=== PATIENT | female | born 1995 | race Caucasian/White ===

== ENCOUNTER 2024-02-16 20:33 | Emergency (ER) | payer BC, SELFPAY ==
[2024-02-16 21:09] VITALS: TEMP 97.8
--- NOTE | 2024-02-16 21:19 | ERPHSYRPT ---
- History of Present Illness Time Seen by Provider: 02/16/24 20:46 Historian: patient Exam Limitations: no limitations Patient Subjective Stated Complaint: pt states she has been having diarrhea and vomiting since yesterday Triage Nursing Assessment: pt alert and oriented, answers questions approp. pt ambulates into room with steady gait noted. respirations nonlabored. skin warm and dry. abd soft and nontender with hypo bowel sounds. Physician History: 28-year-old healthy female presented in the ER with complaint of abdominal cramping with nausea vomiting and diarrhea. Patient reports 2 days ago it started as a loose stool which got worse since yesterday morning and since last night having multiple episodes of nonprojectile, nonbilious vomiting without hematemesis. Denies any hematochezia. Reports intermittent cramping lasting for 30 to 40 minutes each, partial relief with lying on the stomach and gets wo rse with lying on the back and relief after vomiting or diarrhea. Other family member had some nausea vomiting and diarrhea symptoms as well few days ago. Allergies/Adverse Reactions: Penicillins Allergy (Unknown, Verified 02/16/24 21:09) Hx Tetanus, Diphtheria Vaccination/Date Given: Yes Hx Influenza Vaccination/Date Given: Yes Hx Pneumococcal Vaccination/Date Given: No Immunizations Up to Date: Yes Travel Risk - International Travel Have you traveled outside of the country in past 3 weeks: No - Emerging Infectious Disease Are you exhibiting symptoms associated with any current EIDs: No - Review of Systems Constitutional: Fatigue, Weakness Eyes: No Symptoms Ears, Nose, & Throat: No Symptoms Respiratory: No Symptoms Cardiac: No Symptoms Abdominal/Gastrointestinal: Abdominal Pain, Nausea, Vomiting, Diarrhea Genitourinary Symptoms: No Symptoms Musculoskeletal: No Symptoms Skin: No Symptoms Neurological: No Symptoms Endocrine: No Symptoms Hematologic/Lymphatic: No Symptoms - Past Medical History Pertinent Past Medical History: Yes Other Medical History: possible stomach ulcer, pac's - Past Surgical History Past Surgical History: No - Female History Hx Last Menstrual Period: nexplanon Hx Now: No - Social History Smoking Status: Never smoker Exposure to second hand smoke: No Drug Use: none - Social Determinants of Health Do you worry about a steady place to live?: No Do you have any problems with any of the following?: No known problems In the past 12 months,have you had to go without utilities?: No Transportation Issues: No Has anyone in your support network made you feel unsafe?: No Have you or anyone in your house had to go without enough: No - Nursing Vital Signs Nursing Vital Signs: Initial Vital Signs Temperature 97.8 F 02/16/24 20:46 Pulse Rate 118 H 02/16/24 20:46 Respiratory Rate 18 02/16/24 20:46 Blood Pressure 140/82 02/16/24 20:46 O2 Sat by Pulse Oximetry 97 02/16/24 20:46 Pain Scale Pain Intensity 5 - Physical Exam General Appearance: no apparent distress, alert Eye Exam: PERRL/EOMI Ears, Nose, Throat Exam: normal ENT inspection, TMs normal, pharynx normal, moist mucous membranes Neck Exam: normal inspection, non-tender, supple, full range of motion Respiratory Exam: normal breath sounds, lungs clear Cardiovascular Exam: normal heart sounds, tachycardia Gastrointestinal/Abdomen Exam: soft, normal bowel sounds, tenderness (Generalized), No guarding Back Exam: normal inspection, normal range of motion Extremity Exam: normal inspection, normal range of motion Neurologic Exam: alert, oriented x 3, cooperative, storage management consultant II-XII nml as tested Skin Exam: normal color SpO2 Interpretation: normal SpO2: 97 O2 Delivery: Room Air Ordered Tests: Active Orders 24 hr Category Date Time Status IV Insertion STAT Care 02/16/24 21:15 Active NPO (ED) STAT Care 02/16/24 21:15 Active ABDOMEN AND PELVIS W/0 CONTRAS [CT] Stat Exams 02/16/24 21:53 Taken CBC W DIFF Stat Lab 02/16/24 21:30 Completed CMP Stat Lab 02/16/24 21:30 Completed CULTURE,URINE Stat Lab 02/16/24 21:22 Received HCG QUALITATIVE, URINE Stat Lab 02/16/24 21:30 Completed LIPASE Stat Lab 02/16/24 21:30 Completed UA W/RFX UR CULTURE Stat Lab 02/16/24 21:22 Completed Medication Summary Discontinued Medications Generic Name Dose Route Start Last Admin Trade Name Jaimee PRN Reason Stop Dose Admin Acetaminophen 975 mg 02/16/24 21:15 02/16/24 21:29 Acetaminophen 325 Mg Tablet PO 02/16/24 21:16 975 mg STAT ONE Administration Acetaminophen Confirm 02/16/24 21:24 Acetaminophen 325 Mg Tablet Administered 02/16/24 21:25 Dose 975 mg .ROUTE .STK-MED ONE Famotidine 20 mg 02/16/24 21:15 02/16/24 21:31 Famotidine 20 Mg/1 Vial IV 02/16/24 21:16 20 mg STAT ONE Administration Famotidine Confirm 02/16/24 21:24 Famotidine 20 Mg/1 Vial Administered 02/16/24 21:25 Dose 20 mg IV .STK-MED ONE Sodium Chloride 1,000 mls @ 999 mls/hr 02/16/24 21:15 02/16/24 21:29 Sodium Chloride 0.9% 1000 Ml IV 02/16/24 22:15 999 mls/hr .Q1H1M STA Administration Sodium Chloride Confirm 02/16/24 21:24 Sodium Chloride 0.9% 1000 Ml Administered 02/16/24 21:25 Dose 1,000 mls @ ud .ROUTE .STK-MED ONE Ondansetron HCl 4 mg 02/16/24 21:15 02/16/24 21:29 Ondansetron Hcl 4 Mg/2 Ml Vial IV 02/16/24 21:16 4 mg STAT ONE Administration Ondansetron HCl Confirm 02/16/24 21:24 Ondansetron Hcl 4 Mg/2 Ml Vial Administered 02/16/24 21:25 Dose 4 mg .ROUTE .STK-MED ONE Trimethoprim/Sulfamethoxazole 1 tab 02/16/24 22:44 Smz/Tmp Ds Tablet 1 Tablet PO 02/16/24 22:45 STAT STA Lab/Rad Data: Laboratory Result Diagrams 02/16/24 21:30 02/16/24 21:30 Laboratory Results 02/16/24 02/16/24 02/16/24 Range/Units 21:30 21:30 21:30 WBC (3.98-10.04) x10^3/uL RBC (3.93-5.22) x10^6/uL Hgb (11.2-15.7) g/dL Hct (34.1-44.9) % MCV (79.4-94.8) fL MCH (25.6-32.2) pg MCHC (32.2-35.5) g/dL RDW (11.7-14.4) % Plt Count (182-369) x10^3/uL MPV (9.4-12.3) fL Gran % (34.0-71.1) % Immature Gran % (Auto) (0.001-0.429) % Nucleat RBC Rel Count (0.00-0.2) % Eos # (Auto) (0.04-0.36) x10^3/uL Immature Gran # (Auto) (0.001-0.031) x10^3u/L Absolute Lymphs (auto) (1.18-3.74) x10^3/uL Absolute Monos (auto) (0.24-0.86) x10^3/uL Absolute Nucleated RBC (0.00-0.012) x10^3u/L Lymphocytes % (19.3-51.7) % Monocytes % (4.7-12.5) % Eosinophils % (0.7-5.8) % Basophils % (0.1-1.2) % Absolute Granulocytes (1.56-6.13) x10^3/uL Basophils # (0.01-0.08) x10^3/uL Sodium 139 (135-145) mmol/L Potassium 3.4 L (3.5-5.1) mmol/L Chloride 105 (98-107) mmol/L Carbon Dioxide 22 (22-30) mmol/L Anion Gap 15.0 (5-15) MEQ/L BUN 12 (7-17) mg/dL Creatinine 0.95 (0.52-1.04) mg/dL Estimated GFR 82.7 ML/MIN Glucose 101 (74-106) mg/dL Calcium 9.1 (8.4-10.2) mg/dL Total Bilirubin 0.70 (0.2-1.3) mg/dL AST 23 (14-36) U/L ALT 22 (0-35) U/L Alkaline Phosphatase 66 (38-126) U/L Serum Total Protein 7.2 (6.3-8.2) g/dL Albumin 4.3 (3.5-5.0) g/dL Lipase 65 (23-300) U/L Urine Color (Yellow) Urine Appearance (Clear) Urine pH (4.6-8.0) Ur Specific [place] (1.005-1.030) Urine Protein (Negative) Urine Glucose (UA) (Negative) mg/dL Urine Ketones (Negative) Urine Blood (Negative) Urine Nitrite (Negative) Urine Bilirubin (Negative) Urine Urobilinogen (0.2) mg/dL Ur Leukocyte Esterase (Negative) U Hyaline Cast (Auto) (0-2) /LPF Urine Microscopic RBC (0-5) /HPF Urine Microscopic WBC (0-5) /HPF Ur Epithelial Cells (None Seen) /HPF Urine Bacteria (None Seen) /HPF Urine Mucus (NEGATIVE) /HPF Urine Culture Reflexed (NO) Urine HCG, Qual NEGATIVE (NEGATIVE) Influenza Type A Ag NEGATIVE (NEGATIVE) Influenza Type B Ag NEGATIVE (NEGATIVE) RSV (PCR) NEGATIVE (NEGATIVE) SARS-CoV-2 (PCR) NEGATIVE (NEGATIVE) 02/16/24 02/16/24 Range/Units 21:30 21:22 WBC 11.1 H (3.98-10.04) x10^3/uL RBC 5.52 H (3.93-5.22) x10^6/uL Hgb 15.2 (11.2-15.7) g/dL Hct 45.1 H (34.1-44.9) % MCV 81.7 (79.4-94.8) fL MCH 27.5 (25.6-32.2) pg MCHC 33.7 (32.2-35.5) g/dL RDW 13.5 (11.7-14.4) % Plt Count 187 (182-369) x10^3/uL MPV 9.0 L (9.4-12.3) fL Gran % 78.1 H (34.0-71.1) % Immature Gran % (Auto) 0.6 H (0.001-0.429) % Nucleat RBC Rel Count 0.0 (0.00-0.2) % Eos # (Auto) 0.05 (0.04-0.36) x10^3/uL Immature Gran # (Auto) 0.07 H (0.001-0.031) x10^3u/L Absolute Lymphs (auto) 1.35 (1.18-3.74) x10^3/uL Absolute Monos (auto) 0.92 H (0.24-0.86) x10^3/uL Absolute Nucleated RBC 0.00 (0.00-0.012) x10^3u/L Lymphocytes % 12.2 L (19.3-51.7) % Monocytes % 8.3 (4.7-12.5) % Eosinophils % 0.5 L (0.7-5.8) % Basophils % 0.3 (0.1-1.2) % Absolute Granulocytes 8.67 H (1.56-6.13) x10^3/uL Basophils # 0.03 (0.01-0.08) x10^3/uL Sodium (135-145) mmol/L Potassium (3.5-5.1) mmol/L Chloride (98-107) mmol/L Carbon Dioxide (22-30) mmol/L Anion Gap (5-15) MEQ/L BUN (7-17) mg/dL Creatinine (0.52-1.04) mg/dL Estimated GFR ML/MIN Glucose (74-106) mg/dL Calcium (8.4-10.2) mg/dL Total Bilirubin (0.2-1.3) mg/dL AST (14-36) U/L ALT (0-35) U/L Alkaline Phosphatase (38-126) U/L Serum Total Protein (6.3-8.2) g/dL Albumin (3.5-5.0) g/dL Lipase (23-300) U/L Urine Color Dark Yellow A (Yellow) Urine Appearance Turbid A (Clear) Urine pH 5.5 (4.6-8.0) Ur Specific [place] 1.025 (1.005-1.030) Urine Protein 100 A (Negative) Urine Glucose (UA) Negative (Negative) mg/dL Urine Ketones Trace A (Negative) Urine Blood Negative (Negative) Urine Nitrite Negative (Negative) Urine Bilirubin Small A (Negative) Urine Urobilinogen 0.2 (0.2) mg/dL Ur Leukocyte Esterase Trace A (Negative) U Hyaline Cast (Auto) >50 A (0-2) /LPF Urine Microscopic RBC 6-10 A (0-5) /HPF Urine Microscopic WBC 21-50 A (0-5) /HPF Ur Epithelial Cells Many A (None Seen) /HPF Urine Bacteria Many A (None Seen) /HPF Urine Mucus Moderate A (NEGATIVE) /HPF Urine Culture Reflexed YES (NO) Urine HCG, Qual (NEGATIVE) Influenza Type A Ag (NEGATIVE) Influenza Type B Ag (NEGATIVE) RSV (PCR) (NEGATIVE) SARS-CoV-2 (PCR) (NEGATIVE) - Progress Progress: improved, re-examined Progress Note: 02/16/24 22:47 28-year-old is evaluated in the ER for abdominal cramping with nausea vomiting and diarrhea. Patient is given fluids and symptomatic treatment Tylenol/Zofran, on reevaluation she is feeling much better. Tachycardia is improved. On reevaluation has no peritoneal signs. Workup showed white count of 11, fairly unremarkable chemistries, does have UTI and given dose of Bactrim. CT abdomen pelvis is negative for any acute intra-abdominal/pelvic findings per preliminary report, official report is pending. I believe patient has viral gastroenteritis, will continue with Zofran and Tylenol to go home to take as needed and will do Bactrim for UTI. Recommended increase hydration. Discussed signs symptoms of worsening needing return to ER which she seems understanding. Stable for discharge. Counseled pt/family regarding: lab results, diagnosis, need for follow-up, rad results Medical Desision Making - Diagnostic Testing Diagnostic test were ordered, analyzed, and reviewed by me: Yes Radiological Interpretation: Reviewed by me, Teleradiologist Report - Risk of complications The pt has a mod risk of morbidity or mortality based on: Need for prescription drug management - Departure Departure Disposition: Home Clinical Impression: Gastroenteritis, Acute UTI Condition: Stable Critical Care Time: No Referrals: JAMILA CASTILLO FNP [Primary Care Provider] - Follow up/PCP as directed Instructions: Viral gastroenteritis in adults Additional Instructions: Drink plenty of fluids. Take Tylenol/Zofran as needed. Follow-up with primary care for reevaluation. Return to ER for intractable abdominal pain/nausea vomiting diarrhea or if develop fever chills etc. Prescriptions: Smz/Tmp Ds Tablet [Bactrim Ds Tablet] 1 udtab PO BID #14 tablet Ondansetron ODT 4 MG [Zofran Odt 4 mg] 1 ea PO QIDPRN PRN #7 tablet PRN Reason: n/v
[2024-02-16] MEDS ORDERED: TYLENOL 325 MG ONE (21:24)
[2024-02-16] MEDS ORDERED: Zofran 4 MG/2 ML VIAL ONE (21:24)
[2024-02-16] MEDS ORDERED: Sodium Chloride 0.9% 1000 ML 1,000 ML ONE (21:24)
[2024-02-16] MEDS ORDERED: Pepcid 20 MG VIAL IV ONE (21:24)
[2024-02-16] MEDS: Sodium Chloride 0.9% 1000 ML 1,000 ML IV STA (21:29)
[2024-02-16] MEDS: Zofran 4 MG/2 ML VIAL IV ONE (21:29)
[2024-02-16] MEDS: TYLENOL 325 MG PO ONE (21:29)
[2024-02-16] MEDS: Pepcid 20 MG VIAL IV ONE (21:31)
[2024-02-16 21:38] LABS: Absolute Neutrophil Ct (ANC) 8.67 x10^3/uL (1.56-6.13); BASOPHIL % 0.3 % (0.1-1.2); Basophil (Absolute #) 0.03 x10^3/uL (0.01-0.08); Eosinophil % 0.5 % (0.7-5.8); Eosinophil (Absolute #) 0.05 x10^3/uL (0.04-0.36); Hematocrit 45.1 % (34.1-44.9); Hemoglobin 15.2 g/dL (11.2-15.7); IMMATURE GRAN # 0.07 x10^3u/L (0.001-0.031); IMMATURE GRAN % 0.6 % (0.001-0.429); Lymphocyte (Absolute #) 1.35 x10^3/uL (1.18-3.74); Lymphocytes % 12.2 % (19.3-51.7); Mean Cell Volume 81.7 fL (79.4-94.8); Mean Corpuscular Hemoglobin 27.5 pg (25.6-32.2); Mean Corpuscular Hgb Concent. 33.7 g/dL (32.2-35.5); Monocyte (Absolute #) 0.92 x10^3/uL (0.24-0.86); Monocytes % 8.3 % (4.7-12.5); Neutrophil % 78.1 % (34.0-71.1); Platelet Count 187 x10^3/uL (182-369); Red Blood Count 5.52 x10^6/uL (3.93-5.22); Red Cell Distribution Width 13.5 % (11.7-14.4); White Blood Count 11.1 x10^3/uL (3.98-10.04)
[2024-02-16 21:40] LABS: HCG URINE TEST NEGATIVE (NEGATIVE)
[2024-02-16 21:51] LABS: ALBUMIN 4.3 g/dL (3.5-5.0); BILIRUBIN,TOTAL 0.7 mg/dL (0.2-1.3); Calcium 9.1 mg/dL (8.4-10.2); Creatinine 1 0.95 mg/dL (0.52-1.04); EST GLOMERULAR FILTRATION RATE 82.7 ML/MIN; Potassium 3.4 mmol/L (3.5-5.1); Total Protein 7.2 g/dL (6.3-8.2)
[2024-02-16 21:54] LABS: ADD URINE CULTURE? YES (NO); Appearance Turbid (Clear); Bacteria Many /HPF (None Seen); Bilirubin Small (Negative); Blood Negative (Negative); Epithelial Cells Many /HPF (None Seen); Glucose, Urine Negative (Negative); Hyaline Casts >50 /LPF (0-2); Ketones Trace (Negative); Leukocyte Esterase Trace (Negative); Mucus Moderate /HPF (NEGATIVE); Nitrite Negative (Negative); Ph 5.5 (4.6-8.0); Protein,Urine Dip 100 (Negative); Specific Gravity 1.025 (1.005-1.030); Urobilinogen 0.2 mg/dL (0.2); WBC 21-50 /HPF (0-5)
[2024-02-16 22:21] LABS: INFLUENZA A NEGATIVE (NEGATIVE); INFLUENZA B NEGATIVE (NEGATIVE); RESPIRATORY SYNCTIAL VIRUS NEGATIVE (NEGATIVE); SARS-CoV-2 Xpert Express NEGATIVE (NEGATIVE)
[2024-02-16] MEDS ORDERED: BACTRIM DS TABLET PO ONE (22:48)
[2024-02-16] MEDS: BACTRIM DS TABLET PO STA (22:49)
[2024-02-16] MEDS ORDERED: MORPHINE SULFATE 4 MG INJ ONE (22:59)
[2024-02-16] MEDS: MORPHINE SULFATE 4 MG INJ IV ONE (23:03)
[2024-02-16 23:29] VITALS: BP 111/65; PULSE 88; RESP 16; O2SAT 98
--- NOTE | 2024-02-17 08:39 | XRAY ---
Indication: Abdomen pain, vomiting, and diarrhea 3 days. Multiple contiguous axial images obtained through the abdomen and pelvis without contrast. Comparison: None Lung bases clear. Heart not enlarged. Noncontrasted stomach and bowel loops appear nonobstructed with normal appendix. 14.5 cm splenomegaly. No free fluid/air. Remaining liver, gallbladder, pancreas, spleen, adrenal glands, kidneys, ureters, bladder, uterus, and aorta are unremarkable for noncontrast exam. Osseous structures intact with minimally elongated thoracolumbar double curvature scoliosis. No ventral or inguinal hernias. Impression: Splenomegaly and scoliosis. Remaining CT abdomen/pelvis without contrast exam is negative.
== END 2024-02-16 23:29 | disposition home or self-care (01) ==
LOC: ED 20:33
DX: A08.4 Viral intestinal infection, unspecified (principal); N39.0 Urinary tract infection, site not specified; R11.2 Nausea with vomiting, unspecified; R10.9 Unspecified abdominal pain; Z79.899 Other long term (current) drug therapy
CPT/HCPCS: 0241U; 36000; 36415; 74176; 80053; 81001; 81025; 83690; 85025; 87086; 96360; 96374; 96375; 99284; J2270; J2405; A9270-GY